=== PATIENT | male | born 1955 | race African-American/Black ===

== ENCOUNTER 2017-05-27 07:07 | Day surgery (SDC) | payer MEDICARE ==
[~2017-05-27 07:07] MED LIST: FLU VACC QS2017-18 36 mo. & older 0.5 ML SYRINGE IM ONE
[2017-05-27 07:55] VITALS: BMI 17.8
[2017-05-27 08:02] VITALS: TEMP 97.6
[2017-05-27 08:03] VITALS: BP 135/79
--- NOTE | 2017-05-27 10:12 | RAD ---
SIX VIEWS CERVICAL SPINE: Date: 05-27-17 Comparison: None. History: Cervical radiculopathy. FINDINGS: Anterior discectomy and fusion hardware is present at C3-4. There is fusion at the C3-4 disc interspa ce. There is an intervertebral metallic disc device at C4-5. There is no anterolisthesis or retrolist hesis noted on neutral lateral imaging. Flexion lateral imaging and extension lateral imaging also de monstrate no evidence for anterolisthesis or retrolisthesis. There is no prevertebral soft tissue swe lling. The open mouth odontoid view demonstrates a normal appearing dense and C1-2 articulation. The dens is intact on the Fuchs view. The frontal exam demonstrates mild mid cervical spine facet and uncal vert ebral osteophyte formation. IMPRESSION: Multilevel degenerative change present within the cervical spine as detailed above. POS: [facility]
--- NOTE | 2017-05-27 11:00 | RAD ---
CERVICAL SPINE MYELOGRAM: DATE: 05/27/17. COMPARISON: 09/11/15. HISTORY: Cervical stenosis, bilateral upper extremity radiculopathy. FINDINGS: Informed consent was obtained prior to the procedure. [employer] imaging demonstrates normal vertebral body height and alignment within the lumbar spine. The patient was placed on the fluoroscopic table in the oblique prone position and the skin overlying the L4-5 level is anesthetized with 1% buffered Lidocaine. With intermittent fluoroscopic guidance, a 22-gauge spinal needle was advanced into the thecal sac an d removal of the stylette yields clear cerebrospinal fluid. Subsequently, approximately 10 cc of Iso [id number] was injected into the thecal sac, outlining nerve roots of the cauda equina. The patient's h ead was then tilted down to extend the contrast media into the cervical spine. The needle was remove d. The patient tolerated the procedure well. EXPOSURE DATA: 2.5 minutes of fluoroscopic time, 238.6 mGy*^m2. IMPRESSION: Successful cervical spine myelogram. CT myelogram of the cervical spine to follow. POS: [facility]
[2017-05-27] MEDS ORDERED: Iopamidol-M 300 61% 15 ML VIAL ONE (11:39)
--- NOTE | 2017-05-27 12:10 | CT ---
CERVICAL SPINE CT MYELOGRAM: DATE: 05/27/17. COMPARISON: 09/11/15. HISTORY: A 62-year-old male with bilateral upper extremity radiculopathy. The patient complaints of bilateral upper extremity numbness, left greater than right. TECHNIQUE: Following the intrathecal administration of iodinated contrast media, serial axial CT imaging is obta ined at 2.5 mm intervals from the skull base through the upper thoracic spine. Coronal and sagittal reformatted imaging obtained. FINDINGS: There is good opacification of the CSF-containing spaces. Partially visualized paranasal sinuses and mastoid air cells appear grossly unremarkable. There is anterior diskectomy and fusion hardware present at C3-4. There is a metallic intervertebral disk device at C4-5. There is no anterolisthesis or retrolisthesis seen. The atlantoaxial interspace demonstrates mild degenerative change. The craniocervical and cervicotho racic junctions are intact as is the C1 ring, the dens, and occipital condyles. The imaged lung apices appear grossly unremarkable. There is atherosclerotic calcification of bilateral cavernous carotid arteries. C2-3: No central canal or neural foraminal stenosis. C3-4: Tiny right paracentral disk protrusion with no central canal stenosis. Mild left facet hypertr ophy. No significant neural foraminal stenosis. C4-5: Mild bilateral uncovertebral osteophyte formation, left greater than right. No significant ce ntral canal or neural foraminal stenosis noted. C5-6: No significant central canal or neural foraminal stenosis. C6-7: No significant central canal or neural foraminal stenosis. There is a small central disk prot rusion causing no significant central canal stenosis. C7-T1: No significant central canal or neural foraminal stenosis. No acute fracture. No worrisome lytic or blastic bone lesion. IMPRESSION: Postoperative changes as detailed above. POS: [facility]
== END 2017-05-27 10:05 | disposition home or self-care (01) ==
LOC: RAD 07:07
PROVIDERS: ATTEND Surgery
PROC: B01B1ZZ Fluoroscopy of Spinal Cord using Low Osmolar Contrast (ICD-10-PCS; principal; 2017-05-27)
DX: M48.02 Spinal stenosis, cervical region (principal); M54.12 Radiculopathy, cervical region; Z88.0 Allergy status to penicillin
CPT/HCPCS: 62302; 72040; 72126

== ENCOUNTER 2024-06-28 12:12 | Outpatient (CLI) | payer MEDICARE, MEDICAID | END 2024-06-28 12:13 | disposition home or self-care (01) | LOC: CT 12:12 | PROVIDERS: ATTEND Student in an Organized Health Care Education/Training Program | DX: C34.2 Malignant neoplasm of middle lobe, bronchus or lung (principal); J98.4 Other disorders of lung; D35.02 Benign neoplasm of left adrenal gland; Z98.890 Other specified postprocedural states | CPT/HCPCS: 71250 ==

== ENCOUNTER 2025-02-01 12:29 | Outpatient (CLI) | payer OTHER, MEDICAID | END 2025-02-01 12:30 | disposition home or self-care (01) | LOC: CT 12:29 | PROVIDERS: ATTEND Student in an Organized Health Care Education/Training Program | DX: C34.2 Malignant neoplasm of middle lobe, bronchus or lung (principal); J98.4 Other disorders of lung | CPT/HCPCS: 71250 ==